=== PATIENT | male | born 1980 | race Caucasian/White ===

== ENCOUNTER 2016-11-21 11:26 | Emergency (ER) | payer BC ==
[2016-11-21 11:35] VITALS: BP 113/63
--- NOTE | 2016-11-21 11:40 | ER Document Report ---
ED Medical Screen (RME) - General Stated Complaint: COUGH Notes: 36 yo male c/o cough x 2 weeks, hurts to cough. pain to right lower back with right leg radiculopathy and pain between shoulder blades. cough is slightly productive, chunky green/pink mucus. no fever. no n/v. + smoker respiratory effort nonlabored, lungs CTA, decreased in bases. 98% TRAVEL OUTSIDE OF THE [place] IN LAST 30 DAYS: No - Related Data Allergies/Adverse Reactions: No Known Allergies Allergy (Unverified 01/30/14 20:17) Past Medical History Past Surgical History: Reports: Hx Adenoidectomy, Hx Myringotomy, Hx Tonsillectomy - Immunizations Immunizations up to date: No Hx Diphtheria, Pertussis, Tetanus Vaccination: No Physical Exam - Vital signs Vitals: Temp Pulse Resp BP Pulse Ox 98.2 F 64 18 113/63 98 11/21/16 11:34 11/21/16 11:34 11/21/16 11:34 11/21/16 11:34 11/21/16 11:34 Course - Vital Signs Vital signs: Temp Pulse Resp BP Pulse Ox 98.2 F 64 18 113/63 98 11/21/16 11:34 11/21/16 11:34 11/21/16 11:34 11/21/16 11:34 11/21/16 11:34
[2016-11-21 12:23] LABS: ABSOLUTE BASOPHILS # (AUTO) 0.1 10^3/uL (0.0-0.2); ABSOLUTE EOSINOPHILS # (AUTO) 0.3 10^3/uL (0.0-0.6); ABSOLUTE LYMPHOCYTES (AUTO) 1.8 10^3/uL (0.5-4.7); ABSOLUTE MONOCYTES (AUTO) 0.9 10^3/uL (0.1-1.4); ABSOLUTE NEUT (AUTO) 5.9 10^3/uL (1.7-8.2); BASOPHILS % (AUTO) 0.7 % (0-2); EOSINOPHILS % (AUTO) 2.9 % (0-6); HEMATOCRIT 44.3 % (37.9-51.0); HEMOGLOBIN 15.6 g/dL (13.5-17.0); HGB HCT DIFFERENCE 2.5; MEAN CORPUSCULAR HEMOGLOBIN 30.4 pg (27.0-33.4); MEAN CORPUSCULAR HGB CONC 35.2 g/dL (32.0-36.0); MEAN CORPUSCULAR VOLUME 86 fl (80-97); MONOCYTES % (AUTO) 9.9 % (3-13); RED BLOOD COUNT 5.13 10^6/uL (4.35-5.55); RED CELL DISTRIBUTION WIDTH 13.5 % (11.5-14.0); SEGMENTED NEUTROPHILS % (AUTO) 66.5 % (42-78); WHITE BLOOD COUNT 8.8 10^3/uL (4.0-10.5)
--- NOTE | 2016-11-21 12:57 | ER Document Report ---
ED General - General Chief Complaint: Cough Stated Complaint: COUGH Time seen by provider: 12:52 Mode of Arrival: Ambulatory Information source: Patient Notes: 36-year-old male with 2 week history of cough productive of green or yellow sputum which the past is also out of pink tinge to it. He reports some sharp right posterior chest pain with coughing or deep breathing and also has what he says feels like a pulled muscle in his right low back from coughing. He denies fever, chills, nausea, vomiting, abdominal pain, earache, or sore throat. He also reports sharp anterior chest pain with coughing or deep breathing but not otherwise. He is taking [id number] cough medicine without relief Physical Exam: General: Alert, appears well. HEENT: Normocephalic. Atraumatic. PERRLA. Extraocular movements intact. Oropharynx clear. Neck: Supple. Non-tender. Respiratory: No respiratory distress. Clear and equal breath sounds bilaterally. Mild discomfort to palpation in the right paraspinous muscles at about T5-T10 which localizes and reproduces patient's pain Cardiovascular: Regular rate and rhythm. Abdominal: Normal Inspection. Soft, non-tender. No distension. Normal Bowel Sounds. Back: Minimal discomfort in the lower lumbar region which localizes patient's back pain. No deformity or step off. Upper extremities with 2+ pulses of cyanosis no edema no gross deformity lower extremities Neurological: Speech clear mentation normal Psychological: Normal affect. Normal Mood. Skin: Warm. Dry. Normal color. TRAVEL OUTSIDE OF THE [place] IN LAST 30 DAYS: No - Related Data Allergies/Adverse Reactions: No Known Allergies Allergy (Verified 11/21/16 11:38) Past Medical History - Social History Smoking Status: Current Every Day Smoker Chew tobacco use (# tins/day): No Frequency of alcohol use: None Drug Abuse: None Family History: Reviewed & Not Pertinent Patient has suicidal ideation: No Patient has homicidal ideation: No Renal/ Medical History: Denies: Hx Peritoneal Dialysis Past Surgical History: Reports: Hx Adenoidectomy, Hx Myringotomy, Hx Tonsillectomy - adenoids - Immunizations Immunizations up to date: No Hx Diphtheria, Pertussis, Tetanus Vaccination: No Review of Systems - Review of Systems Constitutional: See HPI EENT: See HPI Cardiovascular: See HPI Respiratory: See HPI Gastrointestinal: See HPI Genitourinary: denies: Burning, Dysuria Musculoskeletal: See HPI Skin: denies: Rash Hematologic/Lymphatic: denies: Swollen glands Neurological/Psychological: denies: Weakness, Numbness Physical Exam - Vital signs Vitals: Temp Pulse Resp BP Pulse Ox 98.2 F 64 18 113/63 98 11/21/16 11:34 11/21/16 11:34 11/21/16 11:34 11/21/16 11:34 11/21/16 11:34 Course - Re-evaluation Re-evalutation: 11/21/16 12:55 Induration patient's symptoms have concerns is represent bronchitis he'll be discharged on Zithromax Z-Wayne albuterol inhaler. His back pain and chest pain are muscular in nature he will receive prescription for Flexeril for that and is counseled to use Tylenol and Motrin as well - Vital Signs Vital signs: Temp Pulse Resp BP Pulse Ox 98.2 F 64 18 113/63 98 11/21/16 11:34 11/21/16 11:34 11/21/16 11:34 11/21/16 11:34 11/21/16 11:34 - Laboratory Result Diagrams: 11/21/16 12:07 - Diagnostic Test Radiology reviewed: Image reviewed, Reports reviewed Discharge - Discharge Clinical Impression: Bronchitis Back pain Qualifiers: Back pain location: low back pain Chronicity: acute Back pain laterality: right Sciatica presence: without sciatica Qualified Code(s): M54.5 - Low back pain Condition: Stable Disposition: HOME, SELF-CARE Additional Instructions: Bronchitis You have acute bronchitis. This disease is an infection or inflammation of the air passageways in your lungs. Symptoms usually include cough, low grade fever, shortness of breath, and wheezing. The cough usually persists for a couple of weeks. Most cases of bronchitis get better without antibiotics. We prescribe antibiotics when we believe bacteria are damaging your airways, or if there's high risk the bronchitis will worsen into pneumonia. Increase your fluid intake. A cool mist humidifier may make your lungs more comfortable. An expectorant (cough medicine that loosens phlegm) can help. If you smoke, STOP!!! Recovery from bronchitis can be somewhat slow, but you should see improvement within a day or two. Repeated episodes of bronchitis may result in lung damage -- for example, chronic bronchitis, recurrent pneumonias, or emphysema. Call the doctor if you develop increasing fever, shortness of breath, chest pain, bloody sputum, or otherwise worsen. If you have not improved at all after several days, contact the physician. Prescriptions: Albuterol Sulfate [Proair HFA Inhalation Aerosol 8.5 gm MDI] 2 puff IH Q4H PRN # 1 mdi PRN Reason: Azithromycin [Zithromax 250 mg Tablet] 250 mg PO ASDIR PRN #6 tablet PRN Reason: Cyclobenzaprine HCl [Flexeril 10 mg Tablet] 10 mg PO TIDP PRN #10 tablet PRN Reason: For Back Pain Referrals: [facility] [Provider Group] - Follow up as needed
== END 2016-11-21 14:01 | disposition home or self-care (01) ==
LOC: ER 11:26
DX: J40 Bronchitis, not specified as acute or chronic (principal); R07.9 Chest pain, unspecified; F17.200 Nicotine dependence, unspecified, uncomplicated
CPT/HCPCS: 36415; 71020; 85025; 99283

== ENCOUNTER 2016-12-08 13:57 | Emergency (ER) | payer BC ==
--- NOTE | 2016-12-08 14:09 | ER Document Report ---
ED Medical Screen (RME) - General Stated Complaint: COUGH Mode of Arrival: Ambulatory Information source: Patient Notes: pt reports recent treatment for bronchitis. Reports coughing and felt a pop a few days ago. Now he report he feels pain in the left side ribs, tender on rest , but really painful with cough. I have greeted and performed a rapid initial assessment of this patient. A comprehensive ED assessment and evaluation of the patient, analysis of test results and completion of the medical decision making process will be conducted by additional ED providers. TRAVEL OUTSIDE OF THE [place] IN LAST 30 DAYS: No - Related Data Allergies/Adverse Reactions: No Known Allergies Allergy (Verified 11/21/16 11:38) Past Medical History Renal/ Medical History: Denies: Hx Peritoneal Dialysis Past Surgical History: Reports: Hx Adenoidectomy, Hx Myringotomy, Hx Tonsillectomy - adenoids - Immunizations Immunizations up to date: No Hx Diphtheria, Pertussis, Tetanus Vaccination: No Physical Exam - Vital signs Vitals: Temp Pulse Resp BP Pulse Ox 98.4 F 73 16 128/71 H 98 12/08/16 14:04 12/08/16 14:04 12/08/16 14:04 12/08/16 14:04 12/08/16 14:04 Course - Vital Signs Vital signs: Temp Pulse Resp BP Pulse Ox 98.4 F 73 16 128/71 H 98 12/08/16 14:04 12/08/16 14:04 12/08/16 14:04 12/08/16 14:04 12/08/16 14:04
--- NOTE | 2016-12-08 15:32 | ER Document Report ---
ED Respiratory Problem - General Time seen by provider: 15:35 Mode of Arrival: Ambulatory Information source: Patient TRAVEL OUTSIDE OF THE [place] IN LAST 30 DAYS: No - HPI Patient complains to provider of: Cough Onset: Other - 2 weeks Associated symptoms: Other - See above <ARUNA ELI - Last Filed: 12/08/16 16:35> <CONNIEBRISA LARRY - Last Filed: 12/08/16 22:46> - General Chief Complaint: Cough Stated Complaint: COUGH Notes: Patient is a 36 year old male who presents to the emergency department complaining of a cough onset 2 weeks ago. Patient states the cough has worsened and is causing pain in his left upper ribs. Patient reports it feels like the rib "pops out of place" when he coughs and then goes back in when he lays down. 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 Patient denies fever and nasal drainage. Patient is a smoker but has quit for the past 2 weeks and hope to stay off. (ARUNA ELI) - Related Data Allergies/Adverse Reactions: No Known Allergies Allergy (Verified 12/08/16 14:08) Past Medical History - General Information source: Patient - Social History Smoking Status: Current Every Day Smoker Chew tobacco use (# tins/day): No Frequency of alcohol use: None Drug Abuse: None Family History: Reviewed & Not Pertinent Pulmonary Medical History: Reports: Hx Bronchitis Past Surgical History: Reports: Hx Adenoidectomy, Hx Myringotomy, Hx Tonsillectomy - & adenoids - Immunizations Immunizations up to date: No Hx Diphtheria, Pertussis, Tetanus Vaccination: No <ARUNA ELI - Last Filed: 12/08/16 16:35> Review of Systems - Review of Systems Constitutional: denies: Fever EENT: denies: Nose discharge Cardiovascular: No symptoms reported Respiratory: See HPI, Cough Gastrointestinal: No symptoms reported Genitourinary: No symptoms reported Male Genitourinary: No symptoms reported Musculoskeletal: See HPI, Other - Rib pain Skin: No symptoms reported Hematologic/Lymphatic: No symptoms reported Neurological/Psychological: No symptoms reported -: Yes All other systems reviewed and negative <ARUNA ELI - Last Filed: 12/08/16 16:35> Physical Exam - Vital signs Interpretation: Normal - General General appearance: Appears well, Alert - HEENT Head: Normocephalic, Atraumatic Eyes: Normal Pupils: PERRL Hearing loss: Left Mouth/Lips: Normal Pharynx: Normal - Respiratory Respiratory status: No respiratory distress Chest status: Tender - Left chest wall tenderness to palpation that is reproducible Breath sounds: Normal Chest palpation: Normal - Cardiovascular Rhythm: Regular Heart sounds: Normal auscultation Murmur: No - Abdominal Inspection: Normal Distension: No distension Bowel sounds: Normal Tenderness: Nontender Organomegaly: No organomegaly - Back Back: Normal, Nontender - Extremities General upper extremity: Normal inspection, Nontender, Normal color, Normal ROM , Normal temperature General lower extremity: Normal inspection, Nontender, Normal color, Normal ROM , Normal temperature, Normal weight bearing. No: Shabbir's sign - Neurological Neuro grossly intact: Yes Cognition: Normal Orientation: AAOx4 [place] Coma Scale Eye Opening: Spontaneous [place] Coma Scale Verbal: Oriented [place] Coma Scale Motor: Obeys Commands [place] Coma Scale Total: 15 Speech: Normal Motor strength normal: LUE, RUE, LLE, RLE Sensory: Normal - Psychological Associated symptoms: Normal affect, Normal mood - Skin Skin Temperature: Warm Skin Moisture: Dry Skin Color: Normal <BRISA ROSALES - Last Filed: 12/08/16 22:46> - Vital signs Vitals: Temp Pulse Resp BP Pulse Ox 98.4 F 73 16 128/71 H 98 12/08/16 14:04 12/08/16 14:04 12/08/16 14:04 12/08/16 14:04 12/08/16 14:04 Course <ARUNA ELI - Last Filed: 12/08/16 16:35> - Diagnostic Test Radiology reviewed: Reports reviewed <BRISA ROSALES - Last Filed: 12/08/16 22:46> - Re-evaluation Re-evalutation: 12/08/16 22:45 No evidence for infection. Patient with cough. History of smoking. Patient will be discharged home with inhaler, steroids, Lidoderm patch. Follow-up with PMD. Return if any worsening or concerning symptoms. Has been given work note. Instructed not to do anything makes his pain worse. Stable for discharge. (BRISA ROSALES) - Vital Signs Vital signs: Temp Pulse Resp BP Pulse Ox 97.4 F 63 16 118/63 100 12/08/16 15:47 12/08/16 15:47 12/08/16 15:00 12/08/16 15:47 12/08/16 15:47 Discharge <ARUNA ELI - Last Filed: 12/08/16 16:35> <BRISA ROSALES - Last Filed: 12/08/16 22:46> - Discharge Clinical Impression: Cough Rib sprain Qualifiers: Encounter type: initial encounter Qualified Code(s): S23.41XA - Sprain of ribs , initial encounter Condition: Stable Disposition: HOME, SELF-CARE Instructions: Rib Injuries and Fractures ([facility]), Bronchospasm ([facility]), Inhaled Bronchodilators ([facility]) Prescriptions: Albuterol Sulfate [Proair HFA] 1 - 2 puff IH Q4 PRN #1 inhaler PRN Reason: Lidocaine [Lidoderm 5% (700 mg) Transdermal Patch] 1 patch TP DAILY #30 adh..patch Methylprednisolone [Medrol Dosepack (4 mg/Tab) 21 Tab/Dosepak] 4 mg PO ASDIR PRN #21 tab.ds.pk PRN Reason: Tramadol HCl [Ultram 50 mg Tablet] 50 mg PO BIDP PRN #20 tablet PRN Reason: Forms: Special Work Note, Smoking Cessation Education, Return to Work Scribe Attestation: 12/08/16 22:46 I personally performed the services described in the documentation, reviewed and edited the documentation which was dictated to the scribe in my presence, and it accurately records my words and actions. (BRISA ROSALES) Scribe Documentation - Scribe Written by Jayneibphi:: fawad Chu, 12/06/16, 0185 acting as scribe for :: Connie <ARUNA ELI - Last Filed: 12/08/16 16:35>
[2016-12-08] MEDS ORDERED: ALBUTEROL SULFATE HFA (90 MCG/PUFF) 8 GM MDI (1 MDI/ER DISP) IH ONE (15:34)
[2016-12-08 15:53] VITALS: BP 118/63
== END 2016-12-08 15:49 | disposition home or self-care (01) ==
LOC: ER 13:57
DX: S23.41XA Sprain of ribs, initial encounter (principal); R05 Cough; R07.81 Pleurodynia; F17.200 Nicotine dependence, unspecified, uncomplicated; X58.XXXA Exposure to other specified factors, initial encounter
CPT/HCPCS: 99283

== ENCOUNTER 2017-01-28 17:42 | Emergency (ER) | payer BC ==
[2017-01-28] MEDS ORDERED: DEXAMETHASONE SOD PHOS INJ 10 MG/1 ML VIAL IM ONE (18:47)
[2017-01-28] MEDS ORDERED: KETOROLAC TROMETHAMINE 60 MG/2 ML SDV IM ONE (18:47)
[2017-01-28] MEDS ORDERED: BENZONATATE 100 MG CAPSULE PO ONE (18:48)
--- NOTE | 2017-01-28 18:50 | ER Document Report ---
ED Respiratory Problem - General Chief Complaint: Cough, chest wall pain Stated Complaint: COUGH Time Seen by Provider: 01/28/17 18:24 Mode of Arrival: Ambulatory Information source: Patient TRAVEL OUTSIDE OF THE [place] IN LAST 30 DAYS: No - HPI Patient complains to provider of: Cough, Hurts to breath, Short of breath, Other - Chest wall pain to the left side worse when coughing or moving his arm Onset: Other - A month getting progressively worse Duration: Worse/persistent Initiating Event: URI, Other - Patient states he stopped smoking a month ago when he was first seen for the cough and chest wall pain Quality of pain: Sharp Severity: Severe Pain Level: 5 Context: Other - Stop smoking a month ago, states she's been coughing for 2 months, left lateral rib pain Short of Breath: Mild Chest pain/discomfort: Intermittent, Left - Chest wall pain, Worse with deep breaths Cough: Productive Sputum amount: Small Sputum color: White - He Sputum consistency: Thick Associated symptoms: Chest pain/discomfort - Chest wall pain left lateral, Cough , Runny nose, Short of breath Similar symptoms previously: Yes Recently seen / treated by doctor: Yes - Related Data Allergies/Adverse Reactions: No Known Allergies Allergy (Verified 12/08/16 14:08) Past Medical History - General Information source: Patient - Social History Smoking Status: Former Smoker Cigarette use (# per day): No Chew tobacco use (# tins/day): No Smoking Education Provided: No Frequency of alcohol use: Occasional Drug Abuse: None Occupation: asphalt Lives with: Spouse/Significant other Family History: COPD, Malignancy, Other - Father had Crohn's Patient has suicidal ideation: No Patient has homicidal ideation: No - Past Medical History Cardiac Medical History: Reports: None Pulmonary Medical History: Reports: Hx Bronchitis EENT Medical History: Reports: None Neurological Medical History: Reports: None Endocrine Medical History: Reports: None Renal/ Medical History: Reports: None Malignancy Medical History: Reports None GI Medical History: Reports: None Musculoskeltal Medical History: Reports None Skin Medical History: Reports Hx Cellulitis, Denies Hx MRSA Psychiatric Medical History: Reports: None Traumatic Medical History: Reports: None Infectious Medical History: Reports: None Past Surgical History: Reports: Hx Adenoidectomy, Hx Myringotomy, Hx Tonsillectomy - adenoids - Immunizations Immunizations up to date: No Hx Diphtheria, Pertussis, Tetanus Vaccination: No Review of Systems - Review of Systems Constitutional: Recent illness EENT: Nose discharge, Sinus discharge Cardiovascular: Chest pain - Chest wall pain left lateral Respiratory: Cough, Short of breath, Sputum Gastrointestinal: No symptoms reported Genitourinary: No symptoms reported Male Genitourinary: No symptoms reported Musculoskeletal: No symptoms reported Skin: No symptoms reported Hematologic/Lymphatic: No symptoms reported Neurological/Psychological: No symptoms reported -: Yes All other systems reviewed and negative Physical Exam - Vital signs Vitals: Pulse Resp BP Pulse Ox 89 20 124/58 L 98 01/28/17 18:05 01/28/17 18:05 01/28/17 18:05 01/28/17 18:05 Interpretation: Normal - General General appearance: Appears well, Alert - HEENT Head: Normocephalic, Atraumatic Eyes: Normal Pupils: PERRL - Respiratory Respiratory status: No respiratory distress Chest status: Pain on movement, Pain with cough, Pain with deep breathing Breath sounds: Normal Chest palpation: Normal - Cardiovascular Rhythm: Regular Heart sounds: Normal auscultation Murmur: No - Abdominal Inspection: Normal Distension: No distension Bowel sounds: Normal Tenderness: Nontender Organomegaly: No organomegaly - Back Back: Normal, Nontender - Extremities General upper extremity: Normal inspection, Nontender, Normal color, Normal ROM , Normal temperature General lower extremity: Normal inspection, Nontender, Normal color, Normal ROM , Normal temperature, Normal weight bearing. No: Shabbir's sign - Neurological Neuro grossly intact: Yes Cognition: Normal Orientation: AAOx4 [place] Coma Scale Eye Opening: Spontaneous [place] Coma Scale Verbal: Oriented [place] Coma Scale Motor: Obeys Commands [place] Coma Scale Total: 15 Speech: Normal Motor strength normal: LUE, RUE, LLE, RLE Sensory: Normal - Psychological Associated symptoms: Normal affect, Normal mood - Skin Skin Temperature: Warm Skin Moisture: Dry Skin Color: Normal Course - Re-evaluation Re-evalutation: 01/28/17 21:44 Discussed x-ray with patient. Patient was treated with Toradol and Decadron IM and Tessalon Perles. Patient was discharged home with prescription for Tessalon Perles and naproxen and instructed to follow-up with a primary doctor. Patient given a list of primary doctors to follow up with. - Vital Signs Vital signs: Temp Pulse Resp BP Pulse Ox 98.3 F 85 18 122/64 99 01/28/17 20:46 01/28/17 20:46 01/28/17 20:46 01/28/17 20:46 01/28/17 20:46 - Diagnostic Test Radiology reviewed: Image reviewed, Reports reviewed Discharge - Discharge Clinical Impression: chest wall pain left lateral Condition: Stable Disposition: HOME, SELF-CARE Instructions: Family Physicians / Practices Additional Instructions: CHEST WALL PAIN: Your chest pain may be coming from the chest wall. This is often caused by straining the muscles or joints in the chest during physical activity, direct trauma, coughing, or vigorous vomiting. Persons with arthritis are especially prone to this type of pain, due to inflammation of the cartilage joints near the breast bone. Occasionally, no cause can be found. Rest from strenuous physical activity. This kind of chest pain is usually made worse by movement of the chest. Depending on the symptoms, we may prescribe medicine for pain, muscle relaxation, and antiinflammatory effects. If the pain is new, and seems to be due to muscle strain, cold packs can help. Otherwise, apply gentle warmth to the painful area for 15 minutes every hour or two. You should call contact the doctor immediately if things change. Further evaluation is needed if you develop a fever or cough, if the nature of the pain changes, or if you become short of breath. Tessalon Perles You have received a prescription for Tessalon Perles (benzonatate). This is a non-narcotic medicine for relief of cough. It usually works in about 15- 20 minutes and lasts around four hours. Tessalon Perles should be swallowed. They should not be chewed or dissolved in the mouth (this can produce temporary numbing of the mouth and choking can occur). If you develop any adverse effects such as wheezing, shortness of breath, hives, rash, itching, or lightheadedness, please return at once. Anti-Inflammatory Medication You have received a prescription for an antiinflammatory agent. This is an excellent, safe drug for pain control. In addition, it has potent antiinflammatory effects which are beneficial, especially in the treatment of injuries, arthritis, or tendonitis. It's best to take this medicine with food. Persons with ulcer disease or allergy to aspirin should notify their physician of this before taking this drug. Take the medication exactly as prescribed. Don't take additional doses unless instructed to do so by your doctor. If you develop wheezing, shortness of breath, hives, faintness, stomach pain, vomiting, or dark black stools, return for re-evaluation at once. STEROID MEDICATION: You have been given an injection of medicine of the cortisone/steroid class. This medication is used to control inflammation or allergy. It is often continued as a pill for a short period of time, until the acute process subsides. There are usually no side effects from short-term use of cortisone-like medications. Some persons feel an increased sense of well-being and are not sleepy at bedtime. Long-term use of cortisone medications is best avoided, unless required for a severe condition. If your condition does not remit, or relapses after the course of corticosteroid medication, you should consult your physician. Warm Packs After approximately two days, apply gentle heat (such as a heating pad or hot water bottle) for about 20 to 30 minutes about every two hours -- at least four times daily. Warmth and elevation will help you make a more rapid recovery , and will ease the pain considerably. Do not use HOT heat, and never apply heat for longer than 30 minutes. The continuous heat can invisibly damage skin and muscles -- even when no burn is seen on the surface. Damaged muscles can make you MORE sore. FOLLOW-UP CARE: If you have been referred to a physician for follow-up care, call the physician s office for an appointment as you were instructed or within the next two days. If you experience worsening or a significant change in your symptoms, notify the physician immediately or return to the Emergency Department at any time for re-evaluation. Prescriptions: Benzonatate [Tessalon Perles 100 mg Capsule] 100 mg PO Q8HP PRN #20 capsule PRN Reason: Naproxen 500 mg PO BIDP PRN #20 tablet PRN Reason: For Pain Forms: Return to Work
[2017-01-28 20:47] VITALS: BP 122/64
== END 2017-01-28 20:47 | disposition home or self-care (01) ==
LOC: ER 17:42
DX: R07.89 Other chest pain (principal); R05 Cough; Z87.891 Personal history of nicotine dependence
CPT/HCPCS: 99284; 96372; 71020; J1885; J1100

== ENCOUNTER 2019-04-13 14:17 | Emergency (ER) | payer OTHER ==
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
[2019-04-13 17:59] VITALS: BP 116/58
== END 2019-04-13 18:10 | disposition home or self-care (01) ==
LOC: ER 14:17
DX: S80.02XA Contusion of left knee, initial encounter (principal); S49.92XA Unspecified injury of left shoulder and upper arm, initial encounter; M25.562 Pain in left knee; M25.512 Pain in left shoulder; V87.7XXA Person injured in collision between other specified motor vehicles (traffic), initial encounter; F17.210 Nicotine dependence, cigarettes, uncomplicated
CPT/HCPCS: 99283